=== PATIENT | female | born 1975 | race Caucasian/White ===

== ENCOUNTER 2016-05-15 00:49 | Emergency (ER) | payer OTHER ==
[~2016-05-15] VITALS: Ht 157.5 cm; Wt 111.1 kg
[~2016-05-15 00:49] MED LIST: AMPI500C49 PO
[2016-05-15 01:05] VITALS: BP 115/70
--- NOTE | 2016-05-15 03:09 | NUR ---
Patient to bed 01.
--- NOTE | 2016-05-15 03:14 | NUR ---
Chris romero in [facility] - 05/15/16 at [address] Logan evaluating patient at bedside.
--- NOTE | 2016-05-15 03:20 | NUR ---
41/F W/C/O PIMPLE ON RT SIDE OF BREAST AND IS CONCERNED SINCE SHE MISSED HER LAST APPT TO HAVE IT CHECKED. DENIES N/V/D; SKIN IS PINK/WARM/DRY; AAOX4 WITH EVEN AND STEADY GAIT; LUNGS CLEAR BL; HR EVEN AND REGULAR; PT DENIES ANY FEVER, CP, SOB, OR COUGH AT THIS TIME; PATIENT STATES PAIN OF 10/10 AT THIS TIME; VSS; PATIENT POSITIONED FOR COMFORT; HOB ELEVATED; BEDRAILS UP X2; BED DOWN. ER MD MADE AWARE OF PT STATUS.
--- NOTE | 2016-05-15 03:33 | NUR ---
Dr. Logan evaluating patient at bedside.
[2016-05-15 03:55] VITALS: BP 115/70
--- NOTE | 2016-05-15 03:55 | NUR ---
Patient discharged with v/s stable. Written and verbal after care instructions given and explained. Patient alert, oriented and verbalized understanding of instructions. Ambulatory with steady gait. All questions addressed prior to discharge. ID band removed. Patient advised to follow up with PMD. Rx of NAPROSYN 500MG AND BACTRIM DS 800MG given. Patient educated on indication of medication including possible reaction and side effects. Opportunity to ask questions provided and answered.
== END 2016-05-15 03:55 | disposition home or self-care (01) ==
LOC: MED 00:49
DX: L02.212 Cutaneous abscess of back [any part, except buttock and flank] (principal)
CPT/HCPCS: 99283

== ENCOUNTER 2016-12-15 23:37 | Emergency (ER) | payer SELFPAY ==
[~2016-12-15] VITALS: Ht 157.5 cm; Wt 104.3 kg
[2016-12-15 23:46] VITALS: BP 140/90
--- NOTE | 2016-12-16 00:53 | NUR ---
AMBULATED TO ER OF3
--- NOTE | 2016-12-16 01:02 | NUR ---
Patient being evaluated by physician.
[2016-12-16 01:20] VITALS: BP 133/75
--- NOTE | 2016-12-16 01:20 | NUR ---
Patient discharged with v/s stable. Written and verbal after care instructions given and explained. Patient alert, oriented and verbalized understanding of instructions. Ambulatory with steady gait. All questions addressed prior to discharge. ID band removed. Patient advised to follow up with PMD. Rx of Miconazole cream and Ciprodex gtts given. Patient educated on indication of medication including possible reaction and side effects. Opportunity to ask questions provided and answered.
== END 2016-12-16 01:20 | disposition home or self-care (01) ==
LOC: MED 23:37
DX: H60.8X1 Other otitis externa, right ear (principal); R03.0 Elevated blood-pressure reading, without diagnosis of hypertension; N89.8 Other specified noninflammatory disorders of vagina; Z79.899 Other long term (current) drug therapy
CPT/HCPCS: 99283

== ENCOUNTER 2017-04-22 22:42 | Emergency (ER) | payer OTHER ==
[~2017-04-22] VITALS: Ht 157.5 cm; Wt 99.8 kg
[2017-04-22 22:45] VITALS: BP 149/105
--- NOTE | 2017-04-22 22:55 | NUR ---
PT. AMBULATED TO ER BED 11
--- NOTE | 2017-04-22 22:57 | NUR ---
42 Y/O F W/C/O PAIN AND SWEELING TO R THUMB X 2 WKS AGO S/P HIITING A FURNITURE. PT STATES SHE HAS BEING TAKEN ZANAFLEX GIVEN TO HER BY COUSIN FOR PAIN AND INFLAMMATION. SWEELING NOTED, NO OTHER S/S OF DISTRESS NOTED. ER MD MADE AWARE.
--- NOTE | 2017-04-22 22:58 | NUR ---
PT TAKEN FOR X-RAY VIA WHEELCHAIR
--- NOTE | 2017-04-22 23:07 | NUR ---
PT BACK FROM X-RAY.
[2017-04-23 00:04] VITALS: BP 135/87
--- NOTE | 2017-04-23 00:04 | NUR ---
Patient discharged with v/s stable. Written and verbal after care instructions given and explained. Patient alert, oriented and verbalized understanding of instructions. Ambulatory with steady gait. All questions addressed prior to discharge. ID band removed. Patient advised to follow up with PMD. Rx of CODEINE PHOSPHATE/PROMETHAZINE HYDROCHLORIDE, IBUPROFEN, TIZANIDINE given. Patient educated on indication of medication including possible reaction and side effects. Opportunity to ask questions provided and answered.
== END 2017-04-23 00:04 | disposition home or self-care (01) ==
LOC: MED 22:42
DX: S63.601A Unspecified sprain of right thumb, initial encounter (principal); Z79.899 Other long term (current) drug therapy; W22.03XA Walked into furniture, initial encounter; Y93.89 Activity, other specified; Y92.89 Other specified places as the place of occurrence of the external cause; Y99.8 Other external cause status
CPT/HCPCS: 73140; 99284

== ENCOUNTER 2017-07-03 00:25 | Emergency (ER) | payer MEDICAID, OTHER ==
[~2017-07-03] VITALS: Ht 157.5 cm; Wt 109.5 kg
[2017-07-03 00:28] VITALS: BP 133/87
--- NOTE | 2017-07-03 00:34 | NUR ---
TO BED # 3 AMBULATORY
--- NOTE | 2017-07-03 01:09 | NUR ---
Dr. Menezes evaluating patient at bedside.
[2017-07-03] MEDS ORDERED: diphenhydrAMINE 12.5 MG/5 ML UDC PO ONE (01:15)
[2017-07-03] MEDS ORDERED: ACETAMINOPHEN EXTRA STRENGTH 500 MG TAB PO ONE (01:15)
--- NOTE | 2017-07-03 01:23 | NUR ---
42Y/F PT. PRESENST TO ED WITH C/O TOUGUE PATCH AND PIMPLE UNDER RT. EYE. AAO X4,AMBULATORY WITH STEADY GAIT. RESPIRTAIONS, EVEN AND UNLABORED. WHITE PATCH AT TOUGUE AND PIMPLE UNDER RT. EYE. NO C/O PAIN AT THIS TIME, VSS, ER MADE AWARE OF PT. STATUS.
[2017-07-03 01:35] VITALS: BP 133/87
--- NOTE | 2017-07-03 01:35 | NUR ---
Patient discharged with v/s stable. Written and verbal after care instructions given and explained. Patient alert, oriented and verbalized understanding of instructions. Ambulatory with steady gait. All questions addressed prior to discharge. ID band removed. Patient advised to follow up with PMD. Rx of TYLENOL 500 MG, BENADRYL 25 MG given. Patient educated on indication of medication including possible reaction and side effects. Opportunity to ask questions provided and answered.
== END 2017-07-03 01:35 | disposition home or self-care (01) ==
LOC: MED 00:25
DX: S00.512A Abrasion of oral cavity, initial encounter (principal); R51 Headache; X58.XXXA Exposure to other specified factors, initial encounter; Y93.89 Activity, other specified; Y99.8 Other external cause status; Y92.89 Other specified places as the place of occurrence of the external cause
CPT/HCPCS: 99283; Q0163

== ENCOUNTER 2023-09-05 22:19 | Emergency (ER) | payer MEDICAID ==
[~2023-09-05] VITALS: Ht 157.5 cm; Wt 103.9 kg
[2023-09-05 22:41] VITALS: BP 168/82; PULSE 89; RESP 18; TEMP 98.7; O2SAT 100
[2023-09-06] MEDS ORDERED: CIPR10SU RIGHT EAR (00:52)
[2023-09-06] MEDS ORDERED: CEPH-588 PO (00:54)
== END 2023-09-06 00:58 | disposition home or self-care (01) ==
LOC: MED 22:19
DX: H60.501 Unspecified acute noninfective otitis externa, right ear (principal); L03.317 Cellulitis of buttock; R51.9 Headache, unspecified; Z79.899 Other long term (current) drug therapy
CPT/HCPCS: 99283